=== PATIENT | male | born 1955 | race African-American/Black ===

== ENCOUNTER 2016-11-29 14:42 | Emergency (ER) | payer OTHER ==
[~2016-11-29 14:42] MED LIST: ASA5GR PO; CRESTOR10 PO; PLAVIX PO; PRIN10 PO; PROAIR HFA INH; ULORIC40 MG PO; VICODIN; VICODIN ES1 TAB PO; VICODINTAB PO
== END 2016-11-29 15:37 | disposition short-term general hospital (02) ==
LOC: ER 14:42
DX: S02.40FA Zygomatic fracture, left side, initial encounter for closed fracture (principal); S02.2XXA Fracture of nasal bones, initial encounter for closed fracture; S02.32XA Fracture of orbital floor, left side, initial encounter for closed fracture; J44.9 Chronic obstructive pulmonary disease, unspecified; I10 Essential (primary) hypertension; Z86.73 Personal history of transient ischemic attack (TIA), and cerebral infarction without residual deficits; F17.200 Nicotine dependence, unspecified, uncomplicated; Z79.899 Other long term (current) drug therapy; X58.XXXA Exposure to other specified factors, initial encounter
CPT/HCPCS: 70450; 70480; 93005; 96374; 96375; 99291; J2405